=== PATIENT | female | born 2000 | race Hispanic/Latino ===

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

== ENCOUNTER 2024-01-04 21:07 | Emergency (ER) | payer OTHER, BC ==
[~2024-01-04] VITALS: Ht 139.7 cm; Wt 117.0 kg
[2024-01-04] MEDS: KETOROLAC 60 MG VIAL (30MG/ML) IM ONE (22:00)
[2024-01-04] MEDS ORDERED: METH-662 PO (23:01)
[2024-01-04] MEDS ORDERED: IBUP-1493 PO (23:01)
[2024-01-05 00:17] VITALS: BP 111/62; PULSE 78; RESP 18; O2SAT 98
== END 2024-01-05 00:31 | disposition home or self-care (01) ==
LOC: EDH 21:07
DX: M79.10 Myalgia, unspecified site (principal); V89.2XXA Person injured in unspecified motor-vehicle accident, traffic, initial encounter; Y93.I9 Activity, other involving external motion; Y92.488 Other paved roadways as the place of occurrence of the external cause; Y99.8 Other external cause status
CPT/HCPCS: 99285; 70450; 72125; 96372; J1885

== ENCOUNTER 2024-03-22 07:09 | Emergency (ER) | payer BC, OTHER ==
[~2024-03-22] VITALS: Ht 139.7 cm; Wt 116.6 kg
[~2024-03-22 07:09] MED LIST: IBUP-1493 PO; METH-662 PO
[2024-03-22 07:41] LABS: BASOPHILS # (AUTO) 0.04 K/uL (0.00-0.20); BASOPHILS % (AUTO) 0.6 % (0.0-5.0); EOSINOPHILS # (AUTO) 0.08 K/uL (0.00-0.70); EOSINOPHILS % (AUTO) 1.2 % (0.0-8.0); HEMATOCRIT 41.3 % (36-48); IMMATURE GRANULOCYTE ABSOLUTE 0.02 K/uL (0-1); LYMPHOCYTES # (AUTO) 1.7 K/uL (1.0-4.8); LYMPHOCYTES % (AUTO) 24.4 % (21.0-51.0); MEAN CORPUSCULAR HEMOGLOBIN 30.5 pg (27.0-33.0); MEAN CORPUSCULAR HGB CONC 34.6 g/dL (32.0-36.0); MEAN CORPUSCULAR VOLUME 88.1 fL (79-99); MONOCYTES # (AUTO) 0.5 K/uL (0.1-1.0); MONOCYTES % (AUTO) 7.9 % (3.0-13.0); NEUTROPHILS # (AUTO) 4.4 K/uL (1.8-7.7); NEUTROPHILS % (AUTO) 65.6 % (40.0-77.0); PLATELET COUNT (AUTO) 245 K/uL (130-400); RED BLOOD CELL COUNT(AUTO) 4.69 MIL/uL (4.00-5.50); RED CELL DISTRIBUTION WIDTH 11.9 % (11.0-15.5); WHITE BLOOD COUNT (AUTO) 6.8 K/uL (4.8-10.8)
[2024-03-22 07:42] LABS: APPEARANCE,URINE CLEAR (CLEAR); BILIRUBIN,URINE NEGATIVE (NEGATIVE); COLOR,URINE LIGHT-YELLOW (YELLOW); GLUCOSE, URINE (UA) NEGATIVE (NEGATIVE); KETONES,URINE NEGATIVE (NEGATIVE); LEUKOCYTE ESTERASE ,URINE 75 Leu/uL (NEGATIVE); NITRATE,URINE NEGATIVE (NEGATIVE); OCCULT BLOOD,URINE NEGATIVE (NEGATIVE); PH,URINE 6.5 (5.0-8.0); PROTEIN,URINE NEGATIVE (NEGATIVE); UROBILINOGEN,URINE 0.2 mg/dL (0.2-1.0)
[2024-03-22 07:49] LABS: CREATININE 0.6 mg/dL (0.5-1.0); POTASSIUM 3.5 mmol/L (3.5-5.1)
[2024-03-22 07:50] LABS: ADD UA MICROSCOPIC YES
[2024-03-22 07:52] LABS: BACTERIA,URINE RARE /HPF (None Seen); RBC,URINE 0-1 /HPF (0-1); SQUAMOUS EPITHELIAL CELL,UR RARE /HPF (0-2); UNCLASSIFIED CRYSTAL 1 /HPF (None Seen)
[2024-03-22] MEDS: ONDANSETRON 4MG INJ IVP ONE (09:01)
[2024-03-22] MEDS: 0.9%NACL 1000ML 1,000 ML IV SCH (09:01)
[2024-03-22] MEDS ORDERED: IOHEXOL-350 75 ML VIAL IV ONE (09:19)
[2024-03-22 10:39] VITALS: BP 125/62; PULSE 66; RESP 17; O2SAT 99
[2024-03-22] MEDS ORDERED: POLY17PO4 PO (13:21)
[2024-03-22] MEDS ORDERED: ONDA-243 PO (13:21)
== END 2024-03-22 13:25 | disposition home or self-care (01) ==
LOC: EDH 07:09
DX: K58.9 Irritable bowel syndrome, unspecified (principal); K59.00 Constipation, unspecified; Z79.899 Other long term (current) drug therapy; Z98.890 Other specified postprocedural states
CPT/HCPCS: 99284; 74177; 96374; 96361; 80048; 83690; 85025; 87077; 87086; 87186; 81001; 81025; 36415; J7030; J2405; Q9967